=== PATIENT | female | born 1970 | race Caucasian/White ===

== ENCOUNTER 2016-12-26 20:33 | Emergency (ER) | payer OTHER ==
[~2016-12-26] VITALS: Ht 167.6 cm; Wt 98.9 kg
[~2016-12-26 20:33] MED LIST: ADVIL,NUPRIN,M200 MG PO; AMOXICILLIN500 M1 PO; AUGMENTIN875 MG PO; ENDOCET 5-3251 EACH PO; FLOVENT 22120 INHALA IH; HYDROCODON-ACE1 EAC7 PO; IBUPROFEN600 MG PO; IBUPROFEN800 MG PO; LEVAQUIN500 MG PO; MOTRIN IB200 MG PO; MOTRIN800 MG PO; NOHOMEMEDS; NORCO 5/3251 TABLET PO; PREDNISONE20 MG PO; ROBITUSSIN AC,T10 ML PO; TRAMADOL HCL50 MG PO; ULTRAM50 MG PO; UNKNOWN MEDS; VENTOLIN HFA18 GM IH
[2016-12-26] MEDS ORDERED: PERCOCET 5/31 TABLET PO (21:56)
[2016-12-26] MEDS ORDERED: NAPROSYN500 MG PO (21:56)
[2016-12-26 22:07] VITALS: BP 127/90
== END 2016-12-26 22:08 | disposition home or self-care (01) ==
LOC: EME 20:33
DX: M25.532 Pain in left wrist (principal)
CPT/HCPCS: 73110; 99281; 99283

== ENCOUNTER 2017-01-09 19:28 | Emergency (ER) | payer OTHER ==
[~2017-01-09] VITALS: Ht 167.6 cm; Wt 87.3 kg
[~2017-01-09 19:28] MED LIST changes: +NAPROSYN500 MG PO; +PERCOCET 5/31 TABLET PO
[2017-01-09] MEDS ORDERED: ULTRACET1 TABLET PO (20:31)
[2017-01-09] MEDS ORDERED: VALIUM2 MG PO (20:31)
[2017-01-09] MEDS ORDERED: MOTRIN800 MG PO (20:31)
[2017-01-09 21:09] VITALS: BP 146/109
== END 2017-01-09 21:11 | disposition home or self-care (01) ==
LOC: EME 19:28
DX: S16.1XXA Strain of muscle, fascia and tendon at neck level, initial encounter (principal); X50.1XXA Overexertion from prolonged static or awkward postures, initial encounter; Y93.E1 Activity, personal bathing and showering; F17.200 Nicotine dependence, unspecified, uncomplicated
CPT/HCPCS: 99281; 99284; J3010

== ENCOUNTER 2017-02-28 17:57 | Emergency (ER) | payer OTHER ==
[~2017-02-28] VITALS: Ht 165.1 cm; Wt 99.1 kg
[~2017-02-28 17:57] MED LIST changes: +ULTRACET1 TABLET PO; +VALIUM2 MG PO
[2017-02-28] MEDS ORDERED: NAPROSYN500 MG PO (20:19)
[2017-02-28] MEDS ORDERED: NORCO 5/3251 TABLET PO (20:19)
[2017-02-28 20:28] VITALS: BP 135/81
== END 2017-02-28 20:29 | disposition home or self-care (01) ==
LOC: EME 17:57
DX: G89.29 Other chronic pain (principal); M25.552 Pain in left hip; F17.200 Nicotine dependence, unspecified, uncomplicated
CPT/HCPCS: 73502; 99281; 99284

== ENCOUNTER 2017-06-03 19:47 | Emergency (ER) | payer OTHER ==
[~2017-06-03] VITALS: Ht 165.1 cm; Wt 99.5 kg
[2017-06-03 20:08] VITALS: BP 102/69
== END 2017-06-03 22:16 | disposition left against medical advice (07) ==
LOC: EME 19:47
DX: M54.5 Low back pain (principal); Z53.21 Procedure and treatment not carried out due to patient leaving prior to being seen by health care provider

== ENCOUNTER 2017-06-05 21:55 | Emergency (ER) | payer OTHER ==
[~2017-06-05] VITALS: Ht 167.6 cm; Wt 99.4 kg
[2017-06-05] MEDS ORDERED: NAPROXEN500 MG PO (23:24)
[2017-06-05 23:37] VITALS: BP 114/70
== END 2017-06-05 23:38 | disposition home or self-care (01) ==
LOC: EME 21:55
DX: S60.222A Contusion of left hand, initial encounter (principal); W22.8XXA Striking against or struck by other objects, initial encounter
CPT/HCPCS: 73130; 99281; 99283; J1885

== ENCOUNTER 2017-08-28 12:20 | Emergency (ER) | payer OTHER ==
[~2017-08-28] VITALS: Ht 167.6 cm; Wt 101.7 kg
[~2017-08-28 12:20] MED LIST changes: +NAPROXEN500 MG PO
[2017-08-28] MEDS ORDERED: MOTRIN800 MG PO (12:56)
[2017-08-28 13:23] VITALS: BP 128/82
== END 2017-08-28 13:31 | disposition home or self-care (01) ==
LOC: EME 12:20
DX: M54.42 Lumbago with sciatica, left side (principal); J45.909 Unspecified asthma, uncomplicated; K21.9 Gastro-esophageal reflux disease without esophagitis; F17.200 Nicotine dependence, unspecified, uncomplicated; Z88.6 Allergy status to analgesic agent

== ENCOUNTER 2018-03-01 17:27 | Emergency (ER) | payer OTHER ==
[~2018-03-01] VITALS: Ht 167.6 cm; Wt 104.8 kg
[2018-03-01 17:54] VITALS: BP 147/93
== END 2018-03-01 19:48 | disposition home or self-care (01) ==
LOC: EME 17:27
PROC: 2W3JX1Z Immobilization of Right Finger using Splint (ICD-10-PCS; principal; 2018-03-01)
DX: M79.644 Pain in right finger(s) (principal); F17.200 Nicotine dependence, unspecified, uncomplicated
CPT/HCPCS: 73140; 99281; 99284

== ENCOUNTER 2018-04-14 19:52 | Emergency (ER) | payer OTHER ==
[~2018-04-14] VITALS: Ht 167.6 cm; Wt 102.6 kg
[2018-04-14 20:15] LABS: BASOPHIL (%) 0.7 % (0-1); BASOPHIL COUNT 0.1 K/uL (0-0.1); EOSINOPHIL (%) 2.8 % (0-5); EOSINOPHIL COUNT 0.2 K/uL (0-0.3); HEMOGLOBIN 15.1 G/DL (11.9-15.5); IMMATURE GRANULOCYTE (%) 0.3 % (0.0-0.7); LYMPHOCYTE (%) 36.2 % (15-42); LYMPHOCYTE COUNT 2.6 K/uL (1.0-2.8); MCH 34.2 PG (29.0-34.0); MCHC 35.1 G/DL (30.0-36.0); MCV 97.3 FL (83-99); MONOCYTE (%) 7.9 % (3-12); MONOCYTE COUNT 0.6 K/uL (0-0.8); NEUTROPHIL (%) 52.1 % (45-76); NEUTROPHIL COUNT 3.8 K/uL (1.8-6.4); PLATELET COUNT 189 K/uL (156-360); RBC DIS.WIDTH-CV 12.9 % (11.8-14.6); RBC DIS.WIDTH-SD 46.8 % (39-53); RED BLOOD COUNT 4.42 M/uL (3.80-5.20); WHITE BLOOD COUNT 7.2 K/uL (4.1-10.2)
[2018-04-14 20:23] LABS: PTT 28.4 SEC (25-37)
[2018-04-14 20:24] LABS: AMYLASE 79 IU/L (1-118); CHLORIDE 103 mEq/L (99-109); POTASSIUM 3.7 mEq/L (3.7-5.4); SODIUM 138 mEq/L (136-147)
[2018-04-14 20:26] LABS: GLUCOSE 137 mg/dL (70-99)
[2018-04-14 20:29] LABS: CREATININE 0.8 mg/dL (0.6-1.3); GFR ESTIMATE (CALCULATED) > 59 mL/min/; SERUM ETHYL ALCOHOL < 10 mg/dL
[2018-04-14 20:30] LABS: UREA NITROGEN (BUN) 10 mg/dL (9-23)
[2018-04-14 20:32] LABS: LIPASE 52 U/L (1.0-51.0)
[2018-04-14 20:36] LABS: TROP-I INTERPRETATION NEGATIVE; TROPONIN-I < 0.01 ng/mL (0.0-0.30)
[2018-04-14 20:38] LABS: QUANTITATIVE HCG < 4.0 MIU/ML
[2018-04-14 20:43] LABS: APPEARANCE CLEAR ((CLEAR)); BILIRUBIN NEGATIVE; BLOOD MODERATE; COLOR STRAW ((YELLOW)); GLUCOSE (STRIP) NEGATIVE; KETONES NEGATIVE; LEUKOCYTES NEGATIVE; NITRITE NEGATIVE; PROTEIN (STRIP) 30; SPECIFIC GRAVITY 1.004 (1.000-1.030); UROBILINOGEN 0.2 MG/DL (0.2-1.0)
[2018-04-14 20:49] LABS: AMPHETAMINE NEGATIVE (500 ng/mL); BARBITURATES NEGATIVE (200 ng/mL); BENZODIAZEPINES NEGATIVE (150 ng/mL); BUPRENORPHINE NEGATIVE (10 ng/mL); COCAINE NEGATIVE (150 ng/mL); METHADONE NEGATIVE (200 ng/mL); METHAMPHETAMINE NEGATIVE (500 ng/mL); OPIATES (MORPHINE) NEGATIVE (100 ng/mL); OXYCODONE NEGATIVE (100 ng/mL); PHENCYCLIDINE NEGATIVE (25 ng/mL); PROPOXYPHENE NEGATIVE (300 ng/mL); THC CANNABINOIDS NEGATIVE (50 ng/mL); TRICYCLIC ANTIDEPRESSANTS NEGATIVE (300 ng/mL)
[2018-04-14 20:50] LABS: BACTERIA NONE SEEN /HPF; EPITHELIAL CELLS RARE /HPF; MUCUS TRACE /LPF; RED BLOOD CELLS 0-5 /HPF (0-5); UCUL ADDED? NO; WHITE BLOOD CELLS 0-5 /HPF (0-5)
[2018-04-14] MEDS ORDERED: MECLIZINE HCL25 MG PO (21:14)
[2018-04-14 21:34] VITALS: BP 156/97
== END 2018-04-14 21:36 | disposition home or self-care (01) ==
LOC: EME → EDBD 19:52 → EME 19:52
PROVIDERS: Emergency Medicine
DX: R42 Dizziness and giddiness (principal); J45.909 Unspecified asthma, uncomplicated; K21.9 Gastro-esophageal reflux disease without esophagitis; F17.200 Nicotine dependence, unspecified, uncomplicated
CPT/HCPCS: 70450; 80048; 81003; 82150; 83690; 84484; 84702; 85025; 85610; 85730; 86850; 86900; 86901; 93005; 99281; 99284; G0480; J7030